=== PATIENT | female | born 1955 | race Caucasian/White ===

== ENCOUNTER 2020-12-11 07:58 | Inpatient (IN) | payer MEDICARE, OTHER ==
[~2020-12-11] VITALS: Ht 162.6 cm; Wt 99.2 kg
[~2020-12-11 07:58] MED LIST: ALPR.25; AMIT75; AMIT75 PO; ASPI81CH; ASPI81CH PO; BETA.1TL; Cardizem Cd180 MG PO; Carisoprodol350 MG; ELIQUIS5 MG PO; FURO20 PO; Hydrochlorothia25 MG; LIDO2L PO; METO50ER PO; MINO100; Tambocor100 MG PO; XARELTO20 MG PO
[2020-12-11] MEDS ORDERED: JANTOVEN3 M2 PO (08:15)
[2020-12-11 08:55] LABS: BASOPHILS ABSOLUTE AUTO 0.05 K/mm3 (0.00-0.23); BASOPHILS PERCENT AUTO 0 % (0-2); EOSINOPHILS ABSOLUTE AUTO 0.02 K/mm3 (0.00-0.68); EOSINOPHILS PERCENT AUTO 0 % (0-6); Hematocrit 39.1 % (33.0-51.0); Hemoglobin 13.9 g/dL (11.5-16.0); IMMATURE GRAN ABSOLUTE AUTO 0.08 K/mm3 (0.00-0.10); IMMATURE GRAN PERCENT AUTO 1 % (0-1); LYMPHOCYTES ABSOLUTE AUTO 1.48 K/mm3 (0.84-5.20); LYMPHOCYTES PERCENT AUTO 10 % (21-46); MONOCYTES ABSOLUTE AUTO 0.82 K/mm3 (0.16-1.47); MONOCYTES PERCENT AUTO 6 % (4-13); Mean Corpuscular HGB 31.2 pg (26.0-34.0); Mean Corpuscular HGB Conc 35.5 g/dL (31.5-36.5); Mean Corpuscular Volume 88 fL (80-100); Mean Platelet Volume 10.1 fL (9.1-12.4); NEUTROPHILS ABSOLUTE AUTO 12.47 K/mm3 (1.96-9.15); NEUTROPHILS PERCENT AUTO 84 % (41-73); Platelet Count 307 K/mm3 (150-400); RDW Coefficient Variation 13.8 % (11.7-14.2); RDW Standard Deviation 43.9 fL (35.1-46.3); Red Blood Cell Count 4.45 M/mm3 (3.80-5.20); White Blood Cell Count 14.92 K/mm3 (4.00-11.30)
[2020-12-11 09:12] LABS: Alanine Aminotransfer (ALT/SGP 20 U/L (12-78); Albumin, Blood 3.6 g/dL (3.4-5.0); Alk Phos 92 U/L (50-136); Anion Gap 7 mmol/L (6-16); Aspartate Aminotrans (AST/SGOT 24 U/L (12-37); Bilirubin, Total 0.8 mg/dL (0.1-1.0); Blood Urea Nitrogen 12 mg/dL (8-24); Bun/Creatinine Ratio 15.6 (12.0-20.0); CO2, Blood 25 mmol/L (21-32); Calcium, Blood 9.2 mg/dL (8.5-10.1); Chloride, Blood 108 mmol/L (98-108); Creatinine, Blood 0.77 mg/dL (0.40-1.00); Globulin, Blood 3.5 g/dL (2.2-4.0); Glomerular Filtration Rate >60 (60-); Glucose, Blood 185 mg/dL (70-99); Potassium, Blood 3.4 mmol/L (3.5-5.5); Sodium, Blood 140 mmol/L (136-145); Total Protein, Blood 7.1 g/dL (6.4-8.2)
[2020-12-11 09:22] LABS: International Normalized Ratio 1.29; Prothrombin Time Results 13.7 Sec (9.7-11.5)
[2020-12-11 12:34] LABS: SARS-Cov-2 (COVID-19) PCR, MMC NEGATIVE (NEGATIVE)
--- NOTE | 2020-12-11 14:45 | NUR ---
12/11/20 1445 Maya Blackwell [facility] [address] RIBERA AT 1351.
[2020-12-11 17:29] LABS: BASOPHILS ABSOLUTE AUTO 0.03 K/mm3 (0.00-0.23); BASOPHILS PERCENT AUTO 0 % (0-2); EOSINOPHILS PERCENT AUTO 0 % (0-6); Hematocrit 37.4 % (33.0-51.0); Hemoglobin 12.9 g/dL (11.5-16.0); IMMATURE GRAN ABSOLUTE AUTO 0.11 K/mm3 (0.00-0.10); IMMATURE GRAN PERCENT AUTO 1 % (0-1); LYMPHOCYTES ABSOLUTE AUTO 0.95 K/mm3 (0.84-5.20); LYMPHOCYTES PERCENT AUTO 5 % (21-46); MONOCYTES ABSOLUTE AUTO 0.56 K/mm3 (0.16-1.47); MONOCYTES PERCENT AUTO 3 % (4-13); Mean Corpuscular HGB Conc 34.5 g/dL (31.5-36.5); Mean Corpuscular Volume 90 fL (80-100); NEUTROPHILS ABSOLUTE AUTO 15.85 K/mm3 (1.96-9.15); NEUTROPHILS PERCENT AUTO 91 % (41-73); Platelet Count 269 K/mm3 (150-400); RDW Coefficient Variation 14.1 % (11.7-14.2); RDW Standard Deviation 46.1 fL (35.1-46.3); Red Blood Cell Count 4.16 M/mm3 (3.80-5.20)
--- NOTE | 2020-12-11 19:04 | NUR ---
ASSUMED PT CARE FROM JUVENCIO LOMAS PT SLEEPING UPRIGHT IN BED. SL AT THIS TIME. VSS, SEE FLOWSHEET. CALL LIGHT WITHIN REACH.
--- NOTE | 2020-12-11 19:11 | NUR ---
TRANSFER TO ICU 8, SHIFT SUMMARY PT TO ICU 8 FROM PACU AT 1640, DROWSY UPON ARRIVAL BUT WAKES EASILY, ORIENTED AND APPROPRIATE. VSS, HR 80'S SR WITH BBB, HX MITRAL VALVE REPLACEMENT. LS CLEAR, BT HYPOACTIVE, ABD SOFT, LAP SURGICAL INCISIONS X4 ACROSS MID ABD CDI, DERMABOND INTACT, NO VAGINAL BLEEDING NOTED. ADMISSION PAPERWORK COMPLETED, PT REPORTED 5/10 ABD PAIN, MEDICATED WITH NORCO, PT DENIES NAUSEA, TOLERATING WATER AND PO MED WELL. NO VOID SINCE ARRIVAL TO UNIT. PT SPOKE WITH ON PHONE TO GIVE UPDATE. IV'S SALINE LOCKED, PT TO RESUME HEPARIN FOR VALVE ANTICOAGULATION AT 2300 THIS EVENING PER ORDERS. REPORT TO ONCOMING SHIFT.
[2020-12-12 01:16] LABS: BASOPHILS ABSOLUTE AUTO 0.02 K/mm3 (0.00-0.23); BASOPHILS PERCENT AUTO 0 % (0-2); EOSINOPHILS PERCENT AUTO 0 % (0-6); Hematocrit 36.9 % (33.0-51.0); IMMATURE GRAN ABSOLUTE AUTO 0.05 K/mm3 (0.00-0.10); IMMATURE GRAN PERCENT AUTO 0 % (0-1); LYMPHOCYTES ABSOLUTE AUTO 1.47 K/mm3 (0.84-5.20); LYMPHOCYTES PERCENT AUTO 10 % (21-46); MONOCYTES ABSOLUTE AUTO 1.08 K/mm3 (0.16-1.47); MONOCYTES PERCENT AUTO 7 % (4-13); Mean Corpuscular HGB Conc 35.2 g/dL (31.5-36.5); Mean Corpuscular Volume 88 fL (80-100); Mean Platelet Volume 10.1 fL (9.1-12.4); NEUTROPHILS ABSOLUTE AUTO 12.48 K/mm3 (1.96-9.15); NEUTROPHILS PERCENT AUTO 83 % (41-73); Platelet Count 314 K/mm3 (150-400); RDW Coefficient Variation 14.1 % (11.7-14.2); RDW Standard Deviation 44.5 fL (35.1-46.3); Red Blood Cell Count 4.19 M/mm3 (3.80-5.20)
--- NOTE | 2020-12-12 05:07 | NUR ---
END OF SHIFT SUMMARY PT REMAINS ON HEPARIN GTT AT 13 U/KG/HR PER PHARMACY CONSULT. ABDOMINAL INCISIONS REMAIN MARK, WELL APPROXIMATED, WITH NO DRAINAGE. PT HAS VOIDED MINIMAL AMOUNTS THIS SHIFT; TOTAL OF 150CC. MINIMAL BLEEDING NOTED TO PAD. PT HAD NO COMPLAINTS OF PAIN. VSS, SEE FLOWSHEET. CALL LIGHT WITHIN REACH; PT ABLE TO MAKE HER NEEDS KNOWN. WILL CONTINUE TO MONITOR UNTIL REPORT IS HANDED OFF TO ONCOMING RN.
[2020-12-12 06:01] LABS: BASOPHILS ABSOLUTE AUTO 0.02 K/mm3 (0.00-0.23); BASOPHILS PERCENT AUTO 0 % (0-2); EOSINOPHILS PERCENT AUTO 0 % (0-6); Hematocrit 35.8 % (33.0-51.0); Hemoglobin 12.4 g/dL (11.5-16.0); IMMATURE GRAN ABSOLUTE AUTO 0.05 K/mm3 (0.00-0.10); IMMATURE GRAN PERCENT AUTO 0 % (0-1); LYMPHOCYTES ABSOLUTE AUTO 1.85 K/mm3 (0.84-5.20); LYMPHOCYTES PERCENT AUTO 13 % (21-46); MONOCYTES ABSOLUTE AUTO 1.52 K/mm3 (0.16-1.47); MONOCYTES PERCENT AUTO 11 % (4-13); Mean Corpuscular HGB 30.7 pg (26.0-34.0); Mean Corpuscular HGB Conc 34.6 g/dL (31.5-36.5); Mean Corpuscular Volume 89 fL (80-100); NEUTROPHILS ABSOLUTE AUTO 10.76 K/mm3 (1.96-9.15); NEUTROPHILS PERCENT AUTO 76 % (41-73); Platelet Count 315 K/mm3 (150-400); RDW Coefficient Variation 14.1 % (11.7-14.2); RDW Standard Deviation 45.1 fL (35.1-46.3); Red Blood Cell Count 4.04 M/mm3 (3.80-5.20)
[2020-12-12 06:18] LABS: Alanine Aminotransfer (ALT/SGP 13 U/L (12-78); Albumin, Blood 3.1 g/dL (3.4-5.0); Alk Phos 76 U/L (50-136); Anion Gap 7 mmol/L (6-16); Aspartate Aminotrans (AST/SGOT 16 U/L (12-37); Bilirubin, Total 0.5 mg/dL (0.1-1.0); Blood Urea Nitrogen 9 mg/dL (8-24); Bun/Creatinine Ratio 12.3 (12.0-20.0); CO2, Blood 25 mmol/L (21-32); Calcium, Blood 8.3 mg/dL (8.5-10.1); Chloride, Blood 107 mmol/L (98-108); Creatinine, Blood 0.73 mg/dL (0.40-1.00); Globulin, Blood 3.1 g/dL (2.2-4.0); Glomerular Filtration Rate >60 (60-); Glucose, Blood 110 mg/dL (70-99); Potassium, Blood 3.6 mmol/L (3.5-5.5); Sodium, Blood 139 mmol/L (136-145); Total Protein, Blood 6.2 g/dL (6.4-8.2)
--- NOTE | 2020-12-12 08:45 | NUR ---
CARE ASSUMED ASSESSMENTS COMPLETED. PT SITTING IN BED, DOCTORS AT BEDSIDE TO ASSESS. ABD MILDLY DISTENDED, TENDER TO PALPATION, PT REFUSES PAIN MEDICATION AT THIS TIME, STATES PAIN IS MINIMAL. INCISIONS X4 TO MID ABD WELL APPROXIMATED WITH NO S/SX INFECTION, DERMABOND INTACT. BT ACTIVE T/O, PT DENIES NAUSEA, TOLERATED BREAKFAST WITHOUT DIFFICULTY. NO VAGINAL BLEEDING AT THIS TIME. HEPARIN GTT DECREASED TO 12.5 U/KG/HR PER PHARMACY.
--- NOTE | 2020-12-12 12:41 | NUR ---
TRANSFER TO SURGICAL FLOOR VSS, PT REPORTING ABD PAIN IS MINIMAL, INCISIONS REMAIN INTACT, SCANT VAGINAL BLEEDING. APPETITE GOOD, PT DENIES NAUSEA. SIMETHIC[employer] AND DSS ADMINISTERED PER ORDERS FOR PT C/O OF GAS AND STATING SHE TAKES DSS DAILY AT HOME. REPORT GIVEN TO JUVENCIO GOLD. PT TO 208 VIA WITH BELONGINGS AND CHART, HEPARIN CONTINUES TO INFUSE AT 12.5U/KG/HR. PT TRANSFERRED SAFELY FROM BED TO WITH STAFF ASSIST.
[2020-12-12 14:10] LABS: BASOPHILS ABSOLUTE AUTO 0.05 K/mm3 (0.00-0.23); BASOPHILS PERCENT AUTO 0 % (0-2); EOSINOPHILS ABSOLUTE AUTO 0.01 K/mm3 (0.00-0.68); EOSINOPHILS PERCENT AUTO 0 % (0-6); Hematocrit 37.5 % (33.0-51.0); IMMATURE GRAN ABSOLUTE AUTO 0.14 K/mm3 (0.00-0.10); IMMATURE GRAN PERCENT AUTO 1 % (0-1); LYMPHOCYTES ABSOLUTE AUTO 2.96 K/mm3 (0.84-5.20); LYMPHOCYTES PERCENT AUTO 16 % (21-46); MONOCYTES ABSOLUTE AUTO 2.01 K/mm3 (0.16-1.47); MONOCYTES PERCENT AUTO 11 % (4-13); Mean Corpuscular HGB Conc 34.7 g/dL (31.5-36.5); Mean Corpuscular Volume 89 fL (80-100); Mean Platelet Volume 10.3 fL (9.1-12.4); NEUTROPHILS ABSOLUTE AUTO 13.05 K/mm3 (1.96-9.15); NEUTROPHILS PERCENT AUTO 72 % (41-73); Platelet Count 345 K/mm3 (150-400); RDW Coefficient Variation 14.4 % (11.7-14.2); RDW Standard Deviation 46.3 fL (35.1-46.3); White Blood Cell Count 18.22 K/mm3 (4.00-11.30)
--- NOTE | 2020-12-12 17:01 | NUR ---
SHIFT SUMMARY PT A&OX4, VSS, POD1 FREDY LAP HYSTER, 4 DERMABOND DRY/INTACT MARK. DENIES PAIN. REP PASSING FLATUS. AMBULATING SBA TO BRP. VOIDING WELL, REP SCANT BLOOD ON PAD. KATHY PO. WILL REPORT TO ONCOMING NOC RN.
--- NOTE | 2020-12-13 04:11 | NUR ---
SHIFT SUMMARY: PT POD#2 FOR ROBOTIC LAP HYSTER. LAP SITES C/D/I WITH DERMABOND IN PLACE. ABD SOFT. ACTIVE BT X4. PT REPORTS PASSING FLATUS. DECLINES NEED FOR PAIN MEDICATION THIS SHIFT. PT DENIES DRG TO HILDA PAD. HEPARIN GTT INFUSING PER EMAR. DOSE INCREASED ONCE PER PHARMACY. PT SBA TO BATHROOM. VOIDING WELL. KATHY PO AND DENIES N/V. AWAITING THERAPEUTIC INR.
[2020-12-13 05:00] LABS: BASOPHILS ABSOLUTE AUTO 0.03 K/mm3 (0.00-0.23); BASOPHILS PERCENT AUTO 0 % (0-2); EOSINOPHILS ABSOLUTE AUTO 0.06 K/mm3 (0.00-0.68); EOSINOPHILS PERCENT AUTO 1 % (0-6); Hematocrit 32.8 % (33.0-51.0); Hemoglobin 11.2 g/dL (11.5-16.0); IMMATURE GRAN ABSOLUTE AUTO 0.07 K/mm3 (0.00-0.10); IMMATURE GRAN PERCENT AUTO 1 % (0-1); LYMPHOCYTES PERCENT AUTO 34 % (21-46); MONOCYTES ABSOLUTE AUTO 1.11 K/mm3 (0.16-1.47); MONOCYTES PERCENT AUTO 11 % (4-13); Mean Corpuscular HGB 30.8 pg (26.0-34.0); Mean Corpuscular HGB Conc 34.1 g/dL (31.5-36.5); Mean Corpuscular Volume 90 fL (80-100); Mean Platelet Volume 10.5 fL (9.1-12.4); NEUTROPHILS ABSOLUTE AUTO 5.59 K/mm3 (1.96-9.15); NEUTROPHILS PERCENT AUTO 54 % (41-73); Platelet Count 270 K/mm3 (150-400); RDW Coefficient Variation 14.3 % (11.7-14.2); RDW Standard Deviation 46.6 fL (35.1-46.3); Red Blood Cell Count 3.64 M/mm3 (3.80-5.20); White Blood Cell Count 10.36 K/mm3 (4.00-11.30)
[2020-12-13 05:17] LABS: International Normalized Ratio 1.32
--- NOTE | 2020-12-13 14:56 | NUR ---
SHIFT SUMMARY POD 2 ROBOTIC LAP HYSTER. PT AAO X4. IV HEPARIN INFUSING. PT DENIES NAUSEA OR VOMITING. SAT UP IN CHAIR ALL MORNING AND AMBULATED THE HALLS. REPORTS PASSING FLATUS. DENIES PAIN. SCANT SPOTTING ON FEMININE PAD. X4 ABD INCISIONS C/D/I WITH DERMABOND STILL IN PLACE. CALL LIGHT WITHIN REACH.
--- NOTE | 2020-12-13 18:26 | NUR ---
Per admit trigger, I met with Nevaeh to offer education regarding advanced care planning. 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
[2020-12-14 05:10] LABS: BASOPHILS ABSOLUTE AUTO 0.04 K/mm3 (0.00-0.23); BASOPHILS PERCENT AUTO 1 % (0-2); EOSINOPHILS ABSOLUTE AUTO 0.24 K/mm3 (0.00-0.68); EOSINOPHILS PERCENT AUTO 3 % (0-6); Hematocrit 30.8 % (33.0-51.0); Hemoglobin 10.5 g/dL (11.5-16.0); IMMATURE GRAN ABSOLUTE AUTO 0.12 K/mm3 (0.00-0.10); IMMATURE GRAN PERCENT AUTO 1 % (0-1); LYMPHOCYTES ABSOLUTE AUTO 2.42 K/mm3 (0.84-5.20); LYMPHOCYTES PERCENT AUTO 29 % (21-46); MONOCYTES ABSOLUTE AUTO 0.82 K/mm3 (0.16-1.47); MONOCYTES PERCENT AUTO 10 % (4-13); Mean Corpuscular HGB 30.5 pg (26.0-34.0); Mean Corpuscular HGB Conc 34.1 g/dL (31.5-36.5); Mean Corpuscular Volume 90 fL (80-100); Mean Platelet Volume 10.3 fL (9.1-12.4); NEUTROPHILS ABSOLUTE AUTO 4.81 K/mm3 (1.96-9.15); NEUTROPHILS PERCENT AUTO 57 % (41-73); Platelet Count 260 K/mm3 (150-400); RDW Coefficient Variation 14.4 % (11.7-14.2); Red Blood Cell Count 3.44 M/mm3 (3.80-5.20); White Blood Cell Count 8.45 K/mm3 (4.00-11.30)
[2020-12-14 05:28] LABS: International Normalized Ratio 1.67; Prothrombin Time Results 17.5 Sec (9.7-11.5)
--- NOTE | 2020-12-14 16:06 | NUR ---
SHIFT SUMMARY: POD 3 LAP HYSTERECTOMY PATIENT IS ALERT AND ORIENTED X4. VS ARE WNL AND IS ON RA. PATIENT DENIES PAIN AT THIS TIME. SHE HAS X4 ABD LAP SITES THAT ARE SEALED WITH DERMABOND. THEY ARE ALL C/D/I. SHE IS PASSING GAS AND VOIDING WELL TOLERATING PO INTAKE. SHE REPORTS SMALL AMOUNT OF VAGINAL BLEEDING ON HILDA PAD. HEPARIN GTT INFUSING PER EMAR. PATIENT IS A SBA TO THE BATHROOM. CALL LIGHT WITHIN REACH. CALLS APPROPRIATELY. THE PLAN IS WAITING TO REACH THERAPEUTIC INR AND THEN BEING ABLE TO DISCHARGE HOME.
--- NOTE | 2020-12-14 19:45 | NUR ---
PATIENT ARRIVED ON UNIT FROM PACU AT AROUND 1818 TODAY 12/14/20. PATIENT IS ALERT AND ORIENTED X4. VS ARE WNL AND IS ON NC. PATIENT DENIES HAVING PAIN AT THIS TIME. SHE IS ATTEMPTING TO EAT JELLO AND DRINKING WATER. PATIENT DENIES NUMBNESS AND TINGLING IN ALL EXTREMITIES AND IS ABLE TO WIGGLE ALL FINGERS AND TOES. THE 3 LAP SITES ON HER ABD ARE C/D/I. CALL LIGHT IS WITHIN REACH.
--- NOTE | 2020-12-14 19:53 | NUR ---
SHIFT SUMMARY: POD 3 LAP HYSTER PATIENT IS ALERT AND ORIENTED X4. VS ARE WNL AND IS ON RA. PATIENT REPORTS NO PAIN AT THIS TIME. THE 4 LAP SITES ON HER ABD ARE C/D/I. DENIES NUMBNESS AND TINGLING. SHE IS ABLE TO WIGGLE ALL FINGERS AND TOES. SHE IS VOIDING, TOLERATING PO INTAKE, AND IS AMBULATING IN THE ROOM TO USE THE BATHROOM AT TIMES. CALLS APPROPRIATELY. CALL LIGHT WITHIN REACH. THE PLAN IS TO CONTINUE IV HEPARIN DRIP TO REACH COUMADIN THERAPEUTIC LEVELS.
[2020-12-15 05:30] LABS: BASOPHILS ABSOLUTE AUTO 0.04 K/mm3 (0.00-0.23); BASOPHILS PERCENT AUTO 0 % (0-2); EOSINOPHILS ABSOLUTE AUTO 0.29 K/mm3 (0.00-0.68); EOSINOPHILS PERCENT AUTO 3 % (0-6); Hematocrit 31.9 % (33.0-51.0); Hemoglobin 10.6 g/dL (11.5-16.0); IMMATURE GRAN ABSOLUTE AUTO 0.06 K/mm3 (0.00-0.10); IMMATURE GRAN PERCENT AUTO 1 % (0-1); LYMPHOCYTES ABSOLUTE AUTO 2.24 K/mm3 (0.84-5.20); LYMPHOCYTES PERCENT AUTO 24 % (21-46); MONOCYTES ABSOLUTE AUTO 0.88 K/mm3 (0.16-1.47); MONOCYTES PERCENT AUTO 10 % (4-13); Mean Corpuscular HGB 30.7 pg (26.0-34.0); Mean Corpuscular HGB Conc 33.2 g/dL (31.5-36.5); Mean Corpuscular Volume 93 fL (80-100); Mean Platelet Volume 10.4 fL (9.1-12.4); NEUTROPHILS PERCENT AUTO 62 % (41-73); Platelet Count 262 K/mm3 (150-400); RDW Coefficient Variation 14.6 % (11.7-14.2); RDW Standard Deviation 47.9 fL (35.1-46.3); Red Blood Cell Count 3.45 M/mm3 (3.80-5.20); White Blood Cell Count 9.21 K/mm3 (4.00-11.30)
[2020-12-15 06:35] LABS: International Normalized Ratio 2.13
--- NOTE | 2020-12-15 07:21 | NUR ---
SUMMARY PT CONT WITH ONLY SCANT VAG BLEED NOTED WITH VOIDS.HEP GTT RATE CHANEGED PER PHARM ORDERS. CURRENTLY RUNNING AT 21.2 ML PER HR AND F/U LAB WILL BE DRAWN AT 1300.
--- NOTE | 2020-12-15 15:30 | NUR ---
ADJUSTED HEPARIN DOSE TO 13.5 UNITS/KG/HR (19.7ML/HR) PER PHARMACY ORDERS BASED ON MOST RECENT LAB RESULTS. DOSAGE VERIFIED BY JUVENCIO PEREZ & JUVENCIO CURIEL.
--- NOTE | 2020-12-15 18:13 | NUR ---
SHIFT SUMMARY POD3 ROBOTIC HYSTERECTOMY W/ BSO & LYSIS OF ADHESIONS DUE TO UTERINE BLEEDING. VSS. PAIN WELL CONTROLLED. PT TOLERATING REGULAR DIET, DENIES N/V. PASSING GAS, VOIDING, & HAVING REGULAR BOWEL MOVEMENTS. 4 LAP SITES TO ABDOMEN, MARK W/ DERMABOND. ECCHYMOSIS SURROUNDING THE 4 LAP SITES. SMALL SPOTTING OF BLOOD ON HILDA PAD. PT DENIES PAIN AT THIS TIME. PT RECEIVING PO WARFARIN & HEPARIN GTT PER EMAR ORDERS. NO ACUTE EVENTS T/O SHIFT. PT AMBULATES INDEPENDENTLY IN ROOM TO BATHROOM AND CHAIR. PT RESTING IN BED AT THIS TIME, CALL LIGHT WITHIN REACH. WILL CONTINUE TO MONITOR AND REPORT TO ONCOMING RN.
[2020-12-16 05:18] LABS: BASOPHILS ABSOLUTE AUTO 0.03 K/mm3 (0.00-0.23); BASOPHILS PERCENT AUTO 0 % (0-2); EOSINOPHILS ABSOLUTE AUTO 0.19 K/mm3 (0.00-0.68); EOSINOPHILS PERCENT AUTO 3 % (0-6); Hematocrit 31.8 % (33.0-51.0); Hemoglobin 10.9 g/dL (11.5-16.0); IMMATURE GRAN ABSOLUTE AUTO 0.05 K/mm3 (0.00-0.10); IMMATURE GRAN PERCENT AUTO 1 % (0-1); LYMPHOCYTES ABSOLUTE AUTO 1.81 K/mm3 (0.84-5.20); LYMPHOCYTES PERCENT AUTO 24 % (21-46); MONOCYTES ABSOLUTE AUTO 0.72 K/mm3 (0.16-1.47); MONOCYTES PERCENT AUTO 9 % (4-13); Mean Corpuscular HGB 30.7 pg (26.0-34.0); Mean Corpuscular HGB Conc 34.3 g/dL (31.5-36.5); Mean Corpuscular Volume 90 fL (80-100); Mean Platelet Volume 10.1 fL (9.1-12.4); NEUTROPHILS ABSOLUTE AUTO 4.85 K/mm3 (1.96-9.15); NEUTROPHILS PERCENT AUTO 63 % (41-73); Platelet Count 278 K/mm3 (150-400); RDW Coefficient Variation 14.6 % (11.7-14.2); Red Blood Cell Count 3.55 M/mm3 (3.80-5.20); White Blood Cell Count 7.65 K/mm3 (4.00-11.30)
[2020-12-16 05:35] LABS: International Normalized Ratio 2.23
--- NOTE | 2020-12-16 08:00 | NUR ---
SUMMARY PT VERB FRUSTRATION OVER LAB DRAWS.PT WANTS DR ASKED ABOUT ANY OTHER OPTIONS OR POSSIBLY GETTING POWER GLIDE IN FOR DRAWS.DAY RN AGREES TO FOLLOW UP.
--- NOTE | 2020-12-16 08:59 | NUR ---
0800 PT ANGRY AND IRRITABLE THIS MORNING, REFUSED VITAL SIGNS X2 DUE TO BILATERAL ARMS BEING PREVIOUSLY USED FOR BLOOD DRAW SITES AND REFUSAL TO USE LEG TO ASSESS BP. DR WHITE TO DISCUSS PT CONCERNS.
--- NOTE | 2020-12-16 11:16 | NUR ---
1045 DISCONTINUED HEPARIN GTT & STARTED LOVENOX PER PHARMACY CONSULT.
--- NOTE | 2020-12-16 17:07 | NUR ---
SHIFT SUMMARY POD4 ROBOTIC HYSTER W/ BSO & LYSIS OF ADHESIONS DUE TO UTERINE BLEEDING. 4 LAP SITES TO ABD, DERMABOND, C/D/I, SURROUNDING BRUISING. HILDA PAD CLEAN AND DRY T/O SHIFT. PAIN WELL CONTROLLED. VSS. PT DENIES N/V, ABDOMINAL PAIN, N/T TO ALL EXTREMITIES. TOLERATING PO DIET. PT REPORTS PASSING GAS AND HAVING BOWEL MOVEMENTS. AMBULATES INDEPENDENTLY IN ROOM. HEPARIN DISCONTINUED TODAY W/ SUBSTITUTION OF LOVENOX BID, SEE EMAR. NO ACUTE EVENTS T/O SHIFT. PT RESTED T/O SHIFT, WILL CONTINUE TO MONITOR & REPORT TO ONCOMING RN.
--- NOTE | 2020-12-16 17:48 | NUR ---
PT'S IS IN BETTER SPIRITS COMPARED TO THIS MORNING. PT REPORTED SHE FEELS BETTER MENTALLY AFTER RESTING AND HAVING AN OUTBURST OF TEARS. PT IN BED CROCHETING AT THIS TIME. PT DOES NOT APPEAR TO BE IN ANY SIGNS OF DISTRESS.
--- NOTE | 2020-12-17 04:38 | NUR ---
SHIFT SUMMARY POD#6 ROBOTIC HYSTER. AAOX4. DISCOMFORT AT TOLERABLE LEVEL T/O NIGHT, DENIES PAIN MEDS. NO NAUSEA/EMESIS. LAP ABD INCISIONS X4 WITH WOUND GLUE C/D/I. DENIES DRAINAGE/SPOTTING. PT VERY ANXIOUS WITH CARE, CONCER REGARDING BEING AWOKEN MANY TIMES T/O NIGHT + DAY WITH MULTIPLE LAB DRAWS, ANXIETY DECREASED WITH VERBAL CONVERSATION + PT REASSURED THAT DISRUPTIONS TO SLEEP WILL BE MINIMALIZED TO PROMOTE SLEEP. PT RESTING WELL SINCE MIDNIGHT, RESPIRATIONS EVEN/UNLABORED WITH CALL LIGHT IN REACH OF PT. WILL CALL LAB FOR AM DRAWS UPON PT'S AWAKENING.
[2020-12-17 07:21] LABS: International Normalized Ratio 2.01; Prothrombin Time Results 20.9 Sec (9.7-11.5)
--- NOTE | 2020-12-17 17:49 | NUR ---
SHIFT SUMMARY PT HAS BEEN A/O X4, IND IN ROOM. TOLERATING PO INTAKE AND VOIDING. NO BLEEDING THIS SHIFT. WAITING FOR INR TO REACH THERAPEUTIC LEVEL. PT HAS BEEN UP IN ROOM, WATCHING TV MOST OF THE DAY. NO ACUTE CHANGES THIS SHIFT.
--- NOTE | 2020-12-18 05:02 | NUR ---
SHIFT SUMMARY PT UP YESTARDAY EVENING WALKING IN HALLS + IN ROOM. AAOX4. PT DENIES DISCOMFORT/NAUSEA/EMESIS. LAP ABD INCISIONS X4 C/D/I. DENIES BLEEDING/SPOTTING. PT RESTED WELL T/O NIGHT. NO ACUTE CHANGES. PT REQUESTING NOT TO BE AWOKEN FOR LAB DRAWS AGAIN THIS SHIFT, WILL CALL THIS RN UPON PT AWAKENING.
[2020-12-18 08:45] LABS: International Normalized Ratio 2.24; Prothrombin Time Results 23.1 Sec (9.7-11.5)
--- NOTE | 2020-12-18 09:25 | NUR ---
PROVIDER IN TO SEE PT. REPORTS PT CAN DC HOME WITH LOVENOX AND FOLLOW-UP LABS. PT INSTRUCTED ON LOVENOX INJECTION AND DEMONSTRATED. STATES SHE FEELS COMFORTABLE WITH THIS PLAN.
[2020-12-18] MEDS ORDERED: ENOX100I SC (09:37)
[2020-12-18] MEDS ORDERED: SIME80CH PO (10:57)
--- NOTE | 2020-12-18 11:25 | NUR ---
DISCHARGE DC INSTRUCTIONS REVIEWED WITH PT. PT REPORTS NO QUESTIONS OR CONCERNS. REVIEWED ADMINISTERING LOVENOX, PT FEELS COMFORTABLE. LOVENOX SCRIPT CALLED TO [facility] PER PT REQUEST. SCRIPT FOR LAB DRAWS GIVEN TO PT. PT WAITING FOR TO PICK HER UP.
--- NOTE | 2020-12-18 12:47 | NUR ---
PT DC'D AT 1245. PERSONAL BELONGINGS SENT WITH PT. PT LEFT WITH .
== END 2020-12-18 12:57 | disposition home or self-care (01) | DRG 741 ==
LOC: ER 07:58 → ICUE 10:17 → ERHOLD 10:17 → ICUE 16:50 → SURS 12-12 12:10
PROVIDERS: Family Medicine; Obstetrics & Gynecology; Pharmacist; Physician Assistant; ADMIT Hospitalist
PROC: 0UT2FZZ Resection of Bilateral Ovaries, Via Natural or Artificial Opening With Percutaneous Endoscopic Assistance (ICD-10-PCS; 2020-12-11)
PROC: 0UBF4ZX Excision of Cul-de-sac, Percutaneous Endoscopic Approach, Diagnostic (ICD-10-PCS; 2020-12-11)
PROC: 8E0W4CZ Robotic Assisted Procedure of Trunk Region, Percutaneous Endoscopic Approach (ICD-10-PCS; 2020-12-11)
PROC: 0UT9FZZ Resection of Uterus, Via Natural or Artificial Opening With Percutaneous Endoscopic Assistance (ICD-10-PCS; principal; 2020-12-11 13:30)
PROC: 0UT7FZZ Resection of Bilateral Fallopian Tubes, Via Natural or Artificial Opening With Percutaneous Endoscopic Assistance (ICD-10-PCS; 2020-12-11 13:30)
DX: C54.1 Malignant neoplasm of endometrium (principal); I48.91 Unspecified atrial fibrillation; N95.0 Postmenopausal bleeding; K46.9 Unspecified abdominal hernia without obstruction or gangrene; M79.7 Fibromyalgia; Z20.822 Contact with and (suspected) exposure to COVID-19; Z95.2 Presence of prosthetic heart valve; Z88.8 Allergy status to other drugs, medicaments and biological substances; Z79.01 Long term (current) use of anticoagulants; Z79.899 Other long term (current) drug therapy; Z87.891 Personal history of nicotine dependence; Z98.890 Other specified postprocedural states
CPT/HCPCS: 36415; 74177; 76830; 76856; 80053; 85025; 85610; 85730; 86850; 86900; 86901; 88108; 88309; 99285-25; A9270; J0330; J1100; J1644; J1650; J2405; J2704; J3010; Q9967; U0004

== ENCOUNTER 2025-04-15 07:31 | Inpatient (IN) | payer MEDICARE, BC ==
[~2025-04-15] VITALS: Ht 165.1 cm; Wt 95.2 kg
[~2025-04-15 07:31] MED LIST changes: +ENOX100I SC; +JANTOVEN3 M2 PO; +SIME80CH PO
[2025-04-15 08:05] LABS: BASOPHILS ABSOLUTE AUTO 0.06 K/mm3 (0.00-0.23); BASOPHILS PERCENT AUTO 1 % (0-2); EOSINOPHILS ABSOLUTE AUTO 0.02 K/mm3 (0.00-0.68); EOSINOPHILS PERCENT AUTO 0 % (0-6); Hematocrit 47.6 % (33.0-51.0); Hemoglobin 16.4 g/dL (11.5-16.0); IMMATURE GRAN ABSOLUTE AUTO 0.06 K/mm3 (0.00-0.10); IMMATURE GRAN PERCENT AUTO 1 % (0-1); LYMPHOCYTES ABSOLUTE AUTO 2.43 K/mm3 (0.84-5.20); LYMPHOCYTES PERCENT AUTO 22 % (21-46); MONOCYTES ABSOLUTE AUTO 0.91 K/mm3 (0.16-1.47); MONOCYTES PERCENT AUTO 8 % (4-13); Mean Corpuscular HGB Conc 34.5 g/dL (31.5-36.5); Mean Corpuscular Volume 91 fL (80-100); NEUTROPHILS ABSOLUTE AUTO 7.59 K/mm3 (1.96-9.15); NEUTROPHILS PERCENT AUTO 69 % (41-73); NRBC ABSOLUTE 0.00 K/mm3 (0.00-0.02); NRBC Auto 0.0 /100 WBC (0.0-0.2); Platelet Count 291 K/mm3 (150-400); RDW Coefficient Variation 15.8 % (11.7-14.2); RDW Standard Deviation 51.8 fL (35.1-46.3)
[2025-04-15 08:20] LABS: Alanine Aminotransfer (ALT/SGP 32.0 U/L (12-78); Albumin, Blood 3.9 g/dL (3.4-5.0); Albumin/Globulin Ratio 1.2 (0.8-1.8); Anion Gap 12.0 mmol/L (3-11); Aspartate Aminotrans (AST/SGOT 35.0 U/L (12-37); Bilirubin, Total 1.5 mg/dL (0.1-1.0); Blood Urea Nitrogen 12.0 mg/dL (8-24); CO2, Blood 22.0 mmol/L (21-32); Calcium, Blood 9.7 mg/dL (8.5-10.1); Chloride, Blood 105.0 mmol/L (98-108); Creatinine, Blood 0.7 mg/dL (0.40-1.00); Globulin, Blood 3.2 g/dL (2.2-4.0); Glucose, Blood 179.0 mg/dL (70-99); Potassium, Blood 4.4 mmol/L (3.5-5.5); Sodium, Blood 135.0 mmol/L (136-145); Total Protein, Blood 7.1 g/dL (6.4-8.2)
[2025-04-15] MEDS ORDERED: NS 500 ML IV SCH ×2 (08:55→14:45)
[2025-04-15] MEDS ORDERED: Magnesium Sulf 2 GM/Water 50ML 50 ML IV ONE (09:00)
[2025-04-15 10:00] LABS: Prothrombin Time Results >90.0 Sec (9.7-11.5)
[2025-04-15] MEDS ORDERED: Ondansetron HCl 2 MG / ML 2ML Vial IV ONE ×2 (10:20→14:45)
[2025-04-15 11:00] LABS: Anion Gap 12.0 mmol/L (3-11); Blood Urea Nitrogen 12.0 mg/dL (8-24); CO2, Blood 24.0 mmol/L (21-32); Calcium, Blood 10.3 mg/dL (8.5-10.1); Chloride, Blood 101.0 mmol/L (98-108); Creatinine, Blood 0.74 mg/dL (0.40-1.00); Glucose, Blood 167.0 mg/dL (70-99); Potassium, Blood 4.8 mmol/L (3.5-5.5); Sodium, Blood 132.0 mmol/L (136-145)
[2025-04-15 12:12] LABS: Prothrombin Time Results 62.3 Sec (9.7-11.5)
[2025-04-15] MEDS ORDERED: NS 1,000 ML IV SCH (12:15)
[2025-04-15] MEDS ORDERED: Propofol 10mg/ml 20 ml Vial (Procedural) IV SCH (12:15)
[2025-04-15] MEDS ORDERED: Furosemide 10 MG / ML 2ML Vial IV ONE (15:50)
[2025-04-15 16:14] LABS: pH Blood Arterial 7.36 (7.35-7.45)
[2025-04-15] MEDS ORDERED: FLU VACC TS2025-26(6MOS UP)/PF 45 MCG/0.5 ML SYRINGE IM SCH (17:20)
[2025-04-15] MEDS ORDERED: Ondansetron HCl 2 MG / ML 2ML Vial IV PRN (17:20)
[2025-04-15] MEDS ORDERED: Furosemide 10 MG / ML 2ML Vial IV SCH (18:00)
[2025-04-15] MEDS ORDERED: Metoclopramide HCl 5MG / ML 2ML Vial IV ONE (18:40)
[2025-04-15 19:01] LABS: Influenza A, PCR NEGATIVE (NEGATIVE); Influenza B, PCR NEGATIVE (NEGATIVE); Resp Syncytial Virus, PCR NEGATIVE (NEGATIVE); SARS-Cov-2 (COVID-19) PCR, MMC NEGATIVE (NEGATIVE)
[2025-04-15 20:03] LABS: pH Blood Venous 7.36 (7.34-7.37)
[2025-04-15 20:47] VITALS: BP 141/64
[2025-04-15] MEDS ORDERED: JANTOVEN3 M2 PO (21:40)
[2025-04-15 23:46] VITALS: BP 157/68
[2025-04-16 03:55] VITALS: BP 138/67
[2025-04-16 04:07] LABS: BASOPHILS ABSOLUTE AUTO 0.04 K/mm3 (0.00-0.23); BASOPHILS PERCENT AUTO 0 % (0-2); EOSINOPHILS ABSOLUTE AUTO 0.01 K/mm3 (0.00-0.68); EOSINOPHILS PERCENT AUTO 0 % (0-6); Hematocrit 45.3 % (33.0-51.0); Hemoglobin 15.8 g/dL (11.5-16.0); IMMATURE GRAN ABSOLUTE AUTO 0.08 K/mm3 (0.00-0.10); IMMATURE GRAN PERCENT AUTO 1 % (0-1); LYMPHOCYTES ABSOLUTE AUTO 2.62 K/mm3 (0.84-5.20); LYMPHOCYTES PERCENT AUTO 20 % (21-46); MONOCYTES ABSOLUTE AUTO 1.48 K/mm3 (0.16-1.47); MONOCYTES PERCENT AUTO 11 % (4-13); Mean Corpuscular HGB Conc 34.9 g/dL (31.5-36.5); Mean Corpuscular Volume 91 fL (80-100); NEUTROPHILS ABSOLUTE AUTO 8.81 K/mm3 (1.96-9.15); NEUTROPHILS PERCENT AUTO 68 % (41-73); NRBC ABSOLUTE 0.00 K/mm3 (0.00-0.02); NRBC Auto 0.0 /100 WBC (0.0-0.2); Platelet Count 251 K/mm3 (150-400); RDW Coefficient Variation 15.9 % (11.7-14.2); RDW Standard Deviation 51.3 fL (35.1-46.3)
[2025-04-16 04:45] LABS: Anion Gap 12.0 mmol/L (3-11); Blood Urea Nitrogen 13.0 mg/dL (8-24); CO2, Blood 24.0 mmol/L (21-32); Calcium, Blood 9.3 mg/dL (8.5-10.1); Chloride, Blood 104.0 mmol/L (98-108); Creatinine, Blood 0.89 mg/dL (0.40-1.00); Glucose, Blood 125.0 mg/dL (70-99); Magnesium, Blood 2.1 mg/dL (1.6-2.4); Potassium, Blood 3.5 mmol/L (3.5-5.5); Sodium, Blood 136.0 mmol/L (136-145)
[2025-04-16 05:19] LABS: Prothrombin Time Results >90.0 Sec (9.7-11.5)
[2025-04-16 06:35] LABS: Prothrombin Time Results 86.7 Sec (9.7-11.5)
--- NOTE | 2025-04-16 07:19 | NUR ---
SHIFT SUMMARY: PT ARRIVED ON UNIT AT 2049. PT A&OX4 CALM AND COOPERATIVE. VSS ON 2L NC. PT BECAME TACHYPNEIC WHILE LYING SUPINE AND NOTED CYANOSIS ON NOSE AND LIPS. RETURNED PT TO SEMI FOWLERS AND PT REPORTED IMPROVED BREATHING AND NOTABLE RETURN OF COLOR TO LIPS AND NOSE. PT REMAINED BEDREST D/T EXERTIONAL SOB. CRITICAL LAB VALUE OF INR >10. POTASSIUM AT 3.5. PROVIDER NOTIFIED AND ORDERED ANOTHER PROTHROMBIN LAB DRAW AND POTASSIUM CHLORIDE IV. MEDICATED PER ORDER. REDRAW INR 9.3. SEE CHARTED CRITICAL VALUE. DAY SHIFT NURSE INFORMED. STRICT I&OS. WICKING SYSTEM IN PLACE. PRN BIPAP AND AIRVO AT BEDSIDE. MED REC COMPLETED WITH PT. PLAN IS FOR ECHO TODAY. BED IS LOW AND LOCKED. CALL LIGHT WITHIN REACH. CONTINUE WITH CURRENT PLAN OF CARE.
[2025-04-16 08:07] VITALS: BP 134/71
[2025-04-16 11:10] VITALS: BP 130/57
[2025-04-16 16:45] VITALS: BP 131/47
--- NOTE | 2025-04-16 18:17 | NUR ---
PT SUMMARY; NO ACUTE CHANGE FOR THE SHIFT. PT DENIES ANY CHEST PAIN/PALPITATIONS. PT VITALS HAS BEEN STABLE. PT NOW TOLERATING ROOMAIR. DENIES SOB WITH EXERTION. PT HAS BEEN GETTING UP TO THE BATHROOM AND BACK TO BED. NO ISSUES. ECHO WAS ONE THIS MORNING RESULTS REPROTED TO DR DELEON. PT STARTED ON ENTERESTO AND RESTARTED METOPROLOL PO 50MG. PT WAS EDCUATED AND MADE AWARE. PT VERBALIZED UNDERSTANDING. PLAN TO KEEP PT OVERNIGHT MONITOR INR LEVELS AND POSSIBLE DC TOMORROW IF STABLE. PT TOLERATING DIET. NO OTHER ISSUES REPORTED WILL REPORT TO ONCOMING SHIFT
[2025-04-16 20:54] VITALS: BP 116/76
[2025-04-16 23:39] VITALS: BP 138/65
[2025-04-17 04:41] LABS: BASOPHILS ABSOLUTE AUTO 0.05 K/mm3 (0.00-0.23); BASOPHILS PERCENT AUTO 1 % (0-2); EOSINOPHILS ABSOLUTE AUTO 0.13 K/mm3 (0.00-0.68); EOSINOPHILS PERCENT AUTO 1 % (0-6); Hematocrit 40.0 % (33.0-51.0); Hemoglobin 13.8 g/dL (11.5-16.0); IMMATURE GRAN ABSOLUTE AUTO 0.05 K/mm3 (0.00-0.10); IMMATURE GRAN PERCENT AUTO 1 % (0-1); LYMPHOCYTES ABSOLUTE AUTO 2.95 K/mm3 (0.84-5.20); LYMPHOCYTES PERCENT AUTO 31 % (21-46); MONOCYTES ABSOLUTE AUTO 0.99 K/mm3 (0.16-1.47); MONOCYTES PERCENT AUTO 10 % (4-13); Mean Corpuscular HGB Conc 34.5 g/dL (31.5-36.5); Mean Corpuscular Volume 92 fL (80-100); NEUTROPHILS ABSOLUTE AUTO 5.42 K/mm3 (1.96-9.15); NEUTROPHILS PERCENT AUTO 57 % (41-73); NRBC ABSOLUTE 0.00 K/mm3 (0.00-0.02); NRBC Auto 0.0 /100 WBC (0.0-0.2); Platelet Count 218 K/mm3 (150-400); RDW Coefficient Variation 15.9 % (11.7-14.2); RDW Standard Deviation 52.7 fL (35.1-46.3)
[2025-04-17 05:04] LABS: Prothrombin Time Results 40.2 Sec (9.7-11.5)
[2025-04-17 05:17] LABS: Alanine Aminotransfer (ALT/SGP 32.0 U/L (12-78); Albumin, Blood 3.2 g/dL (3.4-5.0); Albumin/Globulin Ratio 1.3 (0.8-1.8); Anion Gap 9.0 mmol/L (3-11); Aspartate Aminotrans (AST/SGOT 22.0 U/L (12-37); Bilirubin, Total 1.1 mg/dL (0.1-1.0); Blood Urea Nitrogen 13.0 mg/dL (8-24); CO2, Blood 27.0 mmol/L (21-32); Calcium, Blood 9.2 mg/dL (8.5-10.1); Chloride, Blood 104.0 mmol/L (98-108); Creatinine, Blood 0.84 mg/dL (0.40-1.00); Globulin, Blood 2.5 g/dL (2.2-4.0); Glucose, Blood 109.0 mg/dL (70-99); Potassium, Blood 3.0 mmol/L (3.5-5.5); Sodium, Blood 137.0 mmol/L (136-145); Thyroid Stimulating Hormone 3.49 uIU/mL (0.360-4.800); Total Protein, Blood 5.7 g/dL (6.4-8.2)
[2025-04-17 06:32] LABS: Magnesium, Blood 1.8 mg/dL (1.6-2.4)
--- NOTE | 2025-04-17 06:33 | NUR ---
SHIFT SUMMARY: PT A&OX4 CALM AND COOPERATIVE. BP STABLE. DESAT TO 88% WHILE SLEEPING. APPLIED 2L NC AND MAINTAINED >92%. INDEPENDENT IN ROOM. POTASSIUM 3.0 AND CRITICAL LAB VALUE OF INR 4.05 RECEIVED. PROVIDER NOTIFIED. PROVIDER ORDERED 40 MEQ PO POTASSIUM X2. MEDICATED PER NAKITA. NO NEW ORDERS AT THIS TIME FOR INR LEVEL. BED IS LOW AND LOCKED. CALL LIGHT WITHIN REACH. CONTINUE WITH CURRENT PLAN OF CARE.
[2025-04-17 07:43] VITALS: BP 133/75
[2025-04-17] MEDS ORDERED: Furosemide 10 MG / ML 2ML Vial IV SCH (09:00)
[2025-04-17 12:00] VITALS: BP 141/52
[2025-04-17] MEDS ORDERED: METO50ER PO (12:18)
[2025-04-17] MEDS ORDERED: JARDIANCE10 MG PO (12:19)
[2025-04-17] MEDS ORDERED: FURO20 PO (12:19)
[2025-04-17] MEDS ORDERED: ENTRESTO 24 MG1 EACH PO (12:20)
[2025-04-17] MEDS ORDERED: POTCHL20ER PO (12:20)
--- NOTE | 2025-04-17 13:34 | NUR ---
PT SUMMARY; PT DISCHARGE TO HOME WITH DISCHARGE ORDERS. ALL NEW MEDICATIONS AND DISCHARGE INSTRUCTIONS DISCLOSED WITH THE PT, PT VERBALIZED UNDERSTANDING. CALLED PHARMACY FOR COUMADIN DOSING INSTRUCTED PT TO HOLD DOSE TONIGHT RESTART TOMORROW AND RECHECK INR SATURDAY. NO OTHER ISSUES ENCOUNTERED PT HAS BEEN WALKING IN THE ROOM VIA CANE. VITALS HAS BEEN STABLE. ALL BELONGINGS SENT WITH THE PT. ACCOMPANIED VIA [employer] FOR TRANSPORT
== END 2025-04-17 12:48 | disposition home or self-care (01) | DRG 291 ==
LOC: ER 07:31 → PCU 07:32 → ERHOLD 07:32 → PCU 20:37
PROVIDERS: Student in an Organized Health Care Education/Training Program; ADMIT Internal Medicine
PROC: 5A2204Z Restoration of Cardiac Rhythm, Single (ICD-10-PCS; principal; 2025-04-15)
PROC: 5A09357 Assistance with Respiratory Ventilation, Less than 24 Consecutive Hours, Continuous Positive Airway Pressure (ICD-10-PCS; 2025-04-15)
PROC: 5A0935A Assistance with Respiratory Ventilation, Less than 24 Consecutive Hours, High Flow/Velocity Cannula (ICD-10-PCS; 2025-04-15)
PROC: 3E02340 Introduction of Influenza Vaccine into Muscle, Percutaneous Approach (ICD-10-PCS; 2025-04-15)
DX: I50.33 Acute on chronic diastolic (congestive) heart failure (principal); J96.01 Acute respiratory failure with hypoxia; I48.92 Unspecified atrial flutter; L12.9 Pemphigoid, unspecified; E87.1 Hypo-osmolality and hyponatremia; I48.91 Unspecified atrial fibrillation; M79.7 Fibromyalgia; I44.0 Atrioventricular block, first degree; I27.20 Pulmonary hypertension, unspecified; R79.1 Abnormal coagulation profile; D72.829 Elevated white blood cell count, unspecified; I08.1 Rheumatic disorders of both mitral and tricuspid valves; Z95.2 Presence of prosthetic heart valve; Z98.891 History of uterine scar from previous surgery; Z98.890 Other specified postprocedural states; Z88.8 Allergy status to other drugs, medicaments and biological substances; Z79.899 Other long term (current) drug therapy; Z79.01 Long term (current) use of anticoagulants
CPT/HCPCS: 36415; 36600; 71045; 71260; 80048; 80053; 82803; 83735; 83880; 84443; 84484; 85025; 85379; 85610; 87637; 92960; 93005; 93010; 93306; 94660; 94762; 96365-59; 96375; 96375-59; 96376; 96376-59; 99152; 99285-25; A9270; G0378; J1938; J2405; J2704; J2765; J3475; J3480; J7030; J7050; Q9967